=== PATIENT | female | born 1975 | race Caucasian/White ===

== ENCOUNTER 2023-02-01 22:30 | Observation (INO) ==
[2023-02-01 23:10] LABS: POC Calcium, Ionized 1.14 (1.16-1.32); POC Creatinine 0.6 (0.6-1.2); POC Potassium 3.7 (3.3-5.1)
[2023-02-01] MEDS ORDERED: ACETAMINOPHEN 325 MG TABLET PO ONE (23:12)
[2023-02-01] MEDS ORDERED: diphenhydrAMINE 50 MG/ML VIAL IV ONE (23:12)
[2023-02-01] MEDS ORDERED: 0.9 % SODIUM CHLORIDE 500 ML IV ONE (23:12)
[2023-02-01] MEDS ORDERED: 0.9 % SODIUM CHLORIDE 250 ML IV SCH (23:15)
[2023-02-01 23:50] LABS: Basophils # (Auto) 0.01 K/mcL (0.00-0.30); Basophils % (Auto) 0.1 % (0.0-2.0); Eosinophils # (Auto) 0.08 K/mcL (0.00-0.70); Eosinophils % (Auto) 1.2 % (0.0-7.0); Hematocrit 17.5 % (34.1-44.9); Hemoglobin 4.5 g/dL (11.2-15.7); Lymphocytes # (Auto) 1.46 K/mcL (1.50-4.80); Lymphocytes % (Auto) 21.3 % (15.5-49.0); Mean Cell Volume 65.1 fL (80.0-100.0); Mean Corpuscular HGB Conc 25.7 g/dL (31.0-36.0); Mean Platelet Volume 9.6 fL (8.8-12.5); Monocytes # (Auto) 0.36 K/mcL (0.10-0.90); Monocytes % (Auto) 5.3 % (1.0-12.0); Neutrophils % (Auto) 71.7 % (38.0-78.0); Platelet Count 363 K/mcL (140-440); RBC 2.69 M/mcL (3.59-5.38); WBC 6.8 K/mcL (4.5-11.0)
[2023-02-02] MEDS ORDERED: ONDANSETRON 4 MG/2 ML VIAL IV PRN (00:50)
[2023-02-02] MEDS ORDERED: ACETAMINOPHEN 325 MG TABLET PO PRN (00:50)
[2023-02-02] MEDS ORDERED: LORazepam 2 MG/ML VIAL IV PRN (00:50)
[2023-02-02 02:13] LABS: HCG,Serum Negative
[2023-02-02 05:34] LABS: Hematocrit 23.2 % (34.1-44.9); Hemoglobin 6.7 g/dL (11.2-15.7)
[2023-02-02] MEDS ORDERED: 0.9 % SODIUM CHLORIDE 250 ML IV SCH (09:15)
[2023-02-02] MEDS ORDERED: ESTROGENS, CONJUGATED 25 MG in 0.9 % SODIUM CHLORIDE 50 ML IV SCH (09:30)
[2023-02-02] MEDS: ESTRADIOL 1 MG TABLET PO SCH (19:13)
[2023-02-02 19:17] LABS: Hematocrit 29.2 % (34.1-44.9); Hemoglobin 9.1 g/dL (11.2-15.7)
[2023-02-03 07:01] LABS: Basophils # (Auto) 0.07 K/mcL (0.00-0.30); Basophils % (Auto) 0.9 % (0.0-2.0); Eosinophils # (Auto) 0.21 K/mcL (0.00-0.70); Eosinophils % (Auto) 2.8 % (0.0-7.0); Hemoglobin 9.7 g/dL (11.2-15.7); Lymphocytes # (Auto) 1.91 K/mcL (1.50-4.80); Lymphocytes % (Auto) 25.5 % (15.5-49.0); Mean Cell Volume 73.6 fL (80.0-100.0); Mean Corpuscular HGB Conc 30.3 g/dL (31.0-36.0); Mean Platelet Volume 9.5 fL (8.8-12.5); Monocytes # (Auto) 0.47 K/mcL (0.10-0.90); Monocytes % (Auto) 6.3 % (1.0-12.0); Neutrophils % (Auto) 64.1 % (38.0-78.0); Platelet Count 283 K/mcL (140-440); RBC 4.35 M/mcL (3.59-5.38); Red Cell Distribution Width 22.7 % (11.5-14.5); WBC 7.5 K/mcL (4.5-11.0)
[2023-02-03] MEDS: ESTRADIOL 1 MG TABLET PO SCH (08:38)
[2023-02-03] MEDS ORDERED: IRON POLYSACCHARIDE COMPLEX 150 MG CAPSULE PO SCH (09:00)
[2023-02-03] MEDS ORDERED: ESTRADIOL 1 MG TABLET PO SCH (17:29)
== END 2023-02-03 18:50 | disposition home or self-care (01) ==
LOC: ED 22:30 → MEDSUR 22:30 → ICU 22:30
PROVIDERS: ADMIT Obstetrics & Gynecology; ATTEND Obstetrics & Gynecology